=== PATIENT | male | born 1990 | race Caucasian/White ===

== ENCOUNTER 2018-07-26 11:38 | Emergency (ER) | payer OTHER ==
[~2018-07-26] VITALS: Ht 165.1 cm; Wt 63.6 kg
[2018-07-26] MEDS ORDERED: NICOTINE 21MG/24HR 1 EA TRANSDERMAL TD ONE (12:30)
[2018-07-26 13:13] VITALS: BP 153/102
== END 2018-07-26 13:15 | disposition home or self-care (01) ==
LOC: M ED 11:38
DX: F43.0 Acute stress reaction (principal)

== ENCOUNTER 2018-11-19 21:32 | Emergency (ER) | payer OTHER, SELFPAY ==
[~2018-11-19] VITALS: Ht 157.5 cm; Wt 65.8 kg
[2018-11-19 22:23] LABS: HEMATOCRIT 42.9 % (42.0-52.0); HEMOGLOBIN 14.7 g/dl (13.5-17.5); MEAN CORPUSCULAR VOLUME 95.8 fl (80.0-96.0); RED BLOOD COUNT 4.48 10^6/uL (4.30-6.10); WHITE BLOOD COUNT 6.3 10^3/uL (4.0-10.0)
[2018-11-19 22:24] LABS: MEAN CORPUSCULAR HEMOGLOBIN 32.8 pg (27.0-33.0); MEAN CORPUSCULAR HGB CONC 34.3 g/dl (32.0-36.5); PLATELET COUNT, AUTOMATED 437 10^3/uL (150-450)
[2018-11-19 22:44] LABS: AMPHETAMINES LEVEL URINE NEGATIVE (NEGATIVE); BARBITURATES URINE NEGATIVE (NEGATIVE); BENZODIAZEPINES URINE NEGATIVE (NEGATIVE); CANNABINOIDS URINE NEGATIVE (NEGATIVE); COCAINE METABOLITE URINE NEGATIVE (NEGATIVE); METHADONE URINE NEGATIVE (NEGATIVE); OPIATES URINE NEGATIVE (NEGATIVE); PHENCYCLIDINE URINE NEGATIVE (NEGATIVE)
[2018-11-19 22:57] LABS: ACETAMINOPHEN LEVEL < 2.0 UG/ML (10.0-30.0); ALBUMIN 3.6 GM/DL (3.2-5.2); ALT/SGPT 48 U/L (12-78); BILIRUBIN,DIRECT 0.1 MG/DL (0.0-0.2); BILIRUBIN,TOTAL 0.1 MG/DL (0.2-1.0); BLOOD UREA NITROGEN 17 MG/DL (7-18); CALCIUM LEVEL 8.8 MG/DL (8.5-10.1); CARBON DIOXIDE LEVEL 28 MEQ/L (21-32); CHLORIDE LEVEL 111 MEQ/L (98-107); CREATININE FOR GFR 0.78 MG/DL (0.70-1.30); ETHYL ALCOHOL (ETHANOL) 0.369 % (0.000-0.010); GLOMERULAR FILTRATION RATE > 60.0 (>60); GLUCOSE, FASTING 95 MG/DL (70-100); POTASSIUM SERUM 4.3 MEQ/L (3.5-5.1); SALICYLATE LEVEL < 1.7 MG/DL (5.0-30.0); SODIUM LEVEL 146 MEQ/L (136-145); TOTAL PROTEIN 6.8 GM/DL (6.4-8.2)
[2018-11-20] MEDS ORDERED: LORazepam 2 MG TAB PO PRN (07:00)
--- NOTE | 2018-11-20 07:20 | ECGEPIP ---
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
[2018-11-20] MEDS ORDERED: THIAMINE 100 MG TAB PO SCH (09:00)
[2018-11-20] MEDS ORDERED: FOLIC ACID 1 MG TAB PO SCH (09:00)
[2018-11-20] MEDS ORDERED: MULTIVITAMINS/MINERALS THERAP 1 TAB PO SCH (09:00)
[2018-11-20] MEDS ORDERED: NICOTINE 21MG/24HR 1 EA TRANSDERMAL TD ONE (09:30)
[2018-11-20 17:15] VITALS: BP 160/96
== END 2018-11-20 17:23 | disposition home or self-care (01) ==
LOC: M ED 21:32
DX: F10.129 Alcohol abuse with intoxication, unspecified (principal); I45.19 Other right bundle-branch block; F17.200 Nicotine dependence, unspecified, uncomplicated
CPT/HCPCS: 80048; 80076; 80307; 84443; 85027; 93005; 99284; G0480

== ENCOUNTER 2024-07-27 08:23 | Emergency (ER) | payer OTHER, SELFPAY ==
[~2024-07-27] VITALS: Ht 165.1 cm; Wt 75.8 kg
[2024-07-27 09:50] LABS: BASO # 0.2 10^3/uL (0.0-0.2); EOS % 0.4 % (0.0-3.0); HEMATOCRIT 45.2 % (42.0-52.0); HEMOGLOBIN 15.9 g/dl (13.5-17.5); LYMPH % 11.7 % (24.0-44.0); MEAN CORPUSCULAR HEMOGLOBIN 32.8 pg (27.0-33.0); MEAN CORPUSCULAR HGB CONC 35.2 g/dl (32.0-36.5); MEAN CORPUSCULAR VOLUME 93.2 fl (80.0-96.0); MONO # 0.5 10^3/uL (0.0-0.8); MONO % 5.6 % (2.0-8.0); NEUTROPHILS # 6.5 10^3/uL (1.5-8.5); NEUTROPHILS % 80.1 % (36.0-66.0); PLATELET COUNT, AUTOMATED 428 10^3/uL (150-450); RED BLOOD COUNT 4.85 10^6/uL (4.30-6.10); WHITE BLOOD COUNT 8.1 10^3/uL (4.0-10.0)
[2024-07-27] MEDS: ONDANSETRON 4MG 2ML VIAL IV ONE (09:54)
[2024-07-27] MEDS: NS (Normal Saline) 0.9% 1,000 ML IV ONE ×3 (09:54→13:43)
[2024-07-27] MEDS: LORazepam 2 MG/ML 1ML VIAL IV STA (09:54)
[2024-07-27] MEDS: THIAMINE 100 MG TAB PO SCH ×2 (09:55→21:12)
[2024-07-27] MEDS: FOLIC ACID 1MG TAB PO SCH (09:55)
[2024-07-27] MEDS: MULTIVITAMINS/MINERALS THERAP 1 TAB PO SCH (09:55)
[2024-07-27 10:12] LABS: ALBUMIN 3.9 G/DL (3.2-5.2); ALKALINE PHOSPHATASE 88 U/L (40-129); ALT/SGPT 53 U/L (7.0-40); AST/SGOT 114 U/L (<34); BILIRUBIN,DIRECT 0.1 MG/DL (<0.4); BILIRUBIN,TOTAL 0.3 MG/DL (0.3-1.2); BLOOD UREA NITROGEN 10 MG/DL (9-23); CALCIUM LEVEL 8.8 MG/DL (8.5-10.1); CARBON DIOXIDE LEVEL 26 MMOL/L (20-31); CHLORIDE LEVEL 94 MMOL/L (98-107); CREATININE FOR GFR 0.66 MG/DL (0.70-1.30); GLOMERULAR FILTRATION RATE > 90.0 (>60); GLUCOSE, FASTING 159 MG/DL (60-100); MAGNESIUM LEVEL 1.7 MG/DL (1.8-2.4); POTASSIUM SERUM 4.1 MMOL/L (3.5-5.1); SALICYLATE LEVEL < 3.0 MG/DL (<30); SODIUM LEVEL 139 MMOL/L (136-145); TOTAL PROTEIN 7.7 G/DL (5.7-8.2)
[2024-07-27 10:14] LABS: THYROID STIMULATING HORMONE 3.319 uIU/ML (0.55-4.78)
[2024-07-27 10:26] LABS: ETHYL ALCOHOL (ETHANOL) 0.299 % (0.000-0.010)
[2024-07-27 10:28] LABS: CPK CREATINE PHOSPHOKINASE 511 U/L (46-171)
[2024-07-27] MEDS: LORazepam 2 MG TAB PO PRN (10:57)
[2024-07-27] MEDS: MAG SULF 1GM/100ML (MAG RUN) 1 GM in IV 1 EA IV ONE (12:41)
[2024-07-27 12:46] LABS: AMPHETAMINES LEVEL URINE NEGATIVE (NEGATIVE); BARBITURATES URINE NEGATIVE (NEGATIVE); BENZODIAZEPINES URINE NEGATIVE (NEGATIVE); CANNABINOIDS URINE NEGATIVE (NEGATIVE); COCAINE METABOLITE URINE NEGATIVE (NEGATIVE); METHADONE URINE NEGATIVE (NEGATIVE); OPIATES URINE NEGATIVE (NEGATIVE); PHENCYCLIDINE URINE NEGATIVE (NEGATIVE)
[2024-07-27 13:31] LABS: BLOOD UREA NITROGEN 7 MG/DL (9-23); CALCIUM LEVEL 7.7 MG/DL (8.5-10.1); CARBON DIOXIDE LEVEL 25 MMOL/L (20-31); CHLORIDE LEVEL 101 MMOL/L (98-107); CREATININE FOR GFR 0.54 MG/DL (0.70-1.30); GLOMERULAR FILTRATION RATE > 90.0 (>60); GLUCOSE, FASTING 93 MG/DL (60-100); POTASSIUM SERUM 4.3 MMOL/L (3.5-5.1); SODIUM LEVEL 139 MMOL/L (136-145)
[2024-07-27] MEDS ORDERED: HOME MED LIST COMPLETE! XX SCH (14:40)
[2024-07-27] MEDS ORDERED: LORazepam 2 MG TAB PO PRN (15:30)
[2024-07-27] MEDS ORDERED: HEPARIN SOD 5000UNITS/ML 1ML VIAL/SYRINGE SC SCH (15:30)
[2024-07-27 16:20] VITALS: BP 145/95; TEMP 98.8; O2SAT 97
[2024-07-27 16:31] LABS: INR 0.89; PARTIAL THROMBOPLASTIN TIME 24.5 SECONDS (24.8-34.2); PROTHROMBIN TIME 12.4 SECONDS (12.5-14.5)
[2024-07-27] MEDS: NICOTINE 21MG/24HR 1 EA TRANSDERMAL TD ONE (16:44)
[2024-07-27] MEDS: NS (Normal Saline) 0.9% 1,000 ML IV SCH (18:40)
[2024-07-27 20:37] VITALS: BP 144/95; TEMP 98.2; O2SAT 99
[2024-07-27] MEDS: OXAZEPAM 10MG CAP PO SCH (21:11)
[2024-07-28 04:00] VITALS: BP 147/75; TEMP 97.7; O2SAT 99
[2024-07-28 06:15] LABS: HEMATOCRIT 38.9 % (42.0-52.0); MEAN CORPUSCULAR HEMOGLOBIN 33.3 pg (27.0-33.0); MEAN CORPUSCULAR HGB CONC 34.7 g/dl (32.0-36.5); RED BLOOD COUNT 4.05 10^6/uL (4.30-6.10); WHITE BLOOD COUNT 7.4 10^3/uL (4.0-10.0)
[2024-07-28 06:16] LABS: HEMOGLOBIN 13.5 g/dl (13.5-17.5); PLATELET COUNT, AUTOMATED 300 10^3/uL (150-450)
[2024-07-28 06:36] LABS: ALBUMIN 3.2 G/DL (3.2-5.2); ALKALINE PHOSPHATASE 82 U/L (40-129); ALT/SGPT 58 U/L (7.0-40); AST/SGOT 150 U/L (<34); BILIRUBIN,TOTAL 1.2 MG/DL (0.3-1.2); BLOOD UREA NITROGEN 6 MG/DL (9-23); CALCIUM LEVEL 8.3 MG/DL (8.5-10.1); CARBON DIOXIDE LEVEL 28 MMOL/L (20-31); CHLORIDE LEVEL 102 MMOL/L (98-107); CREATININE FOR GFR 0.55 MG/DL (0.70-1.30); GLOMERULAR FILTRATION RATE > 90.0 (>60); GLUCOSE, FASTING 89 MG/DL (60-100); POTASSIUM SERUM 3.6 MMOL/L (3.5-5.1); SODIUM LEVEL 140 MMOL/L (136-145); TOTAL PROTEIN 6.3 G/DL (5.7-8.2)
[2024-07-28] MEDS: MULTIVITAMINS/MINERALS THERAP 1 TAB PO SCH (09:21)
[2024-07-28] MEDS: OXAZEPAM 10MG CAP PO SCH (09:21)
[2024-07-28] MEDS: FOLIC ACID 1MG TAB PO SCH (09:21)
[2024-07-28] MEDS: ENOXAPARIN 40MG/0.4ML SYRINGE (J1650 PER 10MG) SC SCH (09:22)
[2024-07-28 12:00] VITALS: BP 146/80; TEMP 97.7; O2SAT 99
[2024-07-28 14:00] VITALS: BP 143/88
[2024-07-28 20:08] VITALS: BP 142/90; TEMP 98.4; O2SAT 100
[2024-07-29 04:10] VITALS: BP 144/91; TEMP 97; O2SAT 97
[2024-07-29 06:44] LABS: HEMATOCRIT 39.7 % (42.0-52.0); HEMOGLOBIN 13.9 g/dl (13.5-17.5); MEAN CORPUSCULAR HEMOGLOBIN 33.2 pg (27.0-33.0); MEAN CORPUSCULAR VOLUME 94.7 fl (80.0-96.0); PLATELET COUNT, AUTOMATED 265 10^3/uL (150-450); RED BLOOD COUNT 4.19 10^6/uL (4.30-6.10); WHITE BLOOD COUNT 7.4 10^3/uL (4.0-10.0)
[2024-07-29 07:03] LABS: ALBUMIN 3.2 G/DL (3.2-5.2); ALKALINE PHOSPHATASE 103 U/L (40-129); ALT/SGPT 47 U/L (7.0-40); AST/SGOT 75 U/L (<34); BILIRUBIN,TOTAL 0.8 MG/DL (0.3-1.2); BLOOD UREA NITROGEN < 5 MG/DL (9-23); CALCIUM LEVEL 8.6 MG/DL (8.5-10.1); CARBON DIOXIDE LEVEL 26 MMOL/L (20-31); CHLORIDE LEVEL 98 MMOL/L (98-107); CREATININE FOR GFR 0.48 MG/DL (0.70-1.30); GLOMERULAR FILTRATION RATE > 90.0 (>60); GLUCOSE, FASTING 70 MG/DL (60-100); POTASSIUM SERUM 3.5 MMOL/L (3.5-5.1); SODIUM LEVEL 137 MMOL/L (136-145); TOTAL PROTEIN 6.4 G/DL (5.7-8.2)
== END 2024-07-29 12:19 | disposition home or self-care (01) ==
LOC: M ED 08:23 → M ED INP 08:24 → M MSPAV 16:21
PROVIDERS: ADMIT Internal Medicine; ATTEND Internal Medicine
DX: F10.130 Alcohol abuse with withdrawal, uncomplicated (principal); R74.02 Elevation of levels of lactic acid dehydrogenase [LDH]; F32.A Depression, unspecified; F17.200 Nicotine dependence, unspecified, uncomplicated
CPT/HCPCS: 36415; 71045; 76705; 80048; 80053; 80076; 80143; 80307; 82077; 82550; 83036; 83605; 83735; 84443; 85025; 85027; 85610; 85730; 93005; 93041; 94760; 96360; 96361; 96372; 96374; 96375; 99285; J1650; J2060; J2405; J3475